=== PATIENT | male | born 1985 | race Caucasian/White ===

== ENCOUNTER 2019-11-03 22:57 | Emergency (ER) | payer MEDICAID ==
[~2019-11-03] VITALS: Ht 188 cm; Wt 90.7 kg
[2019-11-03 23:20] VITALS: Ht 188 cm; Wt 90.7 kg
[2019-11-04 00:46] VITALS: BP 139/84
== END 2019-11-04 00:46 | disposition home or self-care (01) ==
LOC: ED 22:57
DX: R06.02 Shortness of breath (principal); R05 Cough; F17.210 Nicotine dependence, cigarettes, uncomplicated; F15.10 Other stimulant abuse, uncomplicated
CPT/HCPCS: 99406; J7512; Q0092

== ENCOUNTER 2020-01-15 01:35 | Emergency (ER) | payer OTHER ==
[~2020-01-15] VITALS: Ht 182.9 cm; Wt 86.2 kg
[2020-01-15 07:11] VITALS: BP 118/79
== END 2020-01-15 07:11 | disposition home or self-care (01) ==
LOC: ED 01:35
DX: J90 Pleural effusion, not elsewhere classified (principal); R07.1 Chest pain on breathing; J45.909 Unspecified asthma, uncomplicated
CPT/HCPCS: J2270; Q0092

== ENCOUNTER 2020-01-20 12:25 | Emergency (ER) | payer OTHER ==
[~2020-01-20] VITALS: Ht 177.8 cm; Wt 90.7 kg
[2020-01-20 12:35] VITALS: BP 144/82; Ht 177.8 cm; Wt 90.7 kg
== END 2020-01-20 13:32 | disposition home or self-care (01) ==
LOC: ED 12:25
DX: J90 Pleural effusion, not elsewhere classified (principal); J45.909 Unspecified asthma, uncomplicated; Z09 Encounter for follow-up examination after completed treatment for conditions other than malignant neoplasm; Z98.890 Other specified postprocedural states

== ENCOUNTER 2020-02-11 15:05 | Emergency (ER) | payer OTHER ==
[~2020-02-11] VITALS: Ht 188 cm; Wt 90.7 kg
[2020-02-11 15:05] VITALS: Ht 188 cm; Wt 90.7 kg
[2020-02-11 16:15] VITALS: BP 123/70
== END 2020-02-11 16:28 | disposition home or self-care (01) ==
LOC: ED 15:05
DX: J45.909 Unspecified asthma, uncomplicated (principal); F17.210 Nicotine dependence, cigarettes, uncomplicated; Z76.0 Encounter for issue of repeat prescription; Z71.6 Tobacco abuse counseling
CPT/HCPCS: J3535; Q0092